=== PATIENT | female | born 1935 | race Caucasian/White ===

== ENCOUNTER → 2016-11-22 17:13 | Outpatient (CLI) | payer MEDICARE, BC | END | disposition home or self-care (01) | LOC: D.MAMMO 09:00 | DX: Z12.31 Encounter for screening mammogram for malignant neoplasm of breast (principal) ==

== ENCOUNTER 2016-11-28 09:39 | Outpatient (CLI) | payer MEDICARE, BC ==
[~2016-11-28] VITALS: Ht 157.5 cm; Wt 59.5 kg
[2016-11-28] MEDS ORDERED: LEVOTHYROXINE100 MCG PO (10:00)
[2016-11-28] MEDS ORDERED: NEURONTIN 300300 MG PO (10:00)
[2016-11-28] MEDS ORDERED: FEXOFENADINE H180 MG PO (10:01)
[2016-11-28] MEDS ORDERED: ZANTAC150 MG PO (10:01)
[2016-11-28] MEDS ORDERED: EVISTA60 MG PO (10:01)
[2016-11-28] MEDS ORDERED: RED YEAST RICE600 MG PO (10:02)
[2016-11-28] MEDS ORDERED: FLUTICASONE PRO16 GM NASAL (10:02)
[2016-11-28] MEDS ORDERED: VITAMIN B-121000 MCG PO (10:03)
[2016-11-28] MEDS ORDERED: CALCIUM 600 +1 EAC3 PO (10:03)
[2016-11-28] MEDS ORDERED: MILK OF MAGNESI30 ML (10:04)
[2016-11-28] MEDS ORDERED: MULTIPLE VITAMI1 TA1 PO (10:04)
[2016-11-28] MEDS ORDERED: GELATIN (10:05)
--- NOTE | 2016-11-28 11:03 | NUR ---
1035 PATIENT HERE TO RECIEVE PROLIA INJECTION, HAS NOT HAD BEFORE. GIVEN IN LEFT UPPER ARM SUBQ TISSUE WITHOUT PROBLEMS TO THE SITE NOTED. 1100 PATIENT WITHOUT REACTION NOTED, WILL DISCHARGE PT HOME. STABLE
[2016-11-28 11:05] VITALS: BP 117/71; Ht 157.5 cm; Wt 59.5 kg
== END 2016-11-28 11:00 ==
LOC: D.OPS 09:39
DX: M81.0 Age-related osteoporosis without current pathological fracture (principal)

== ENCOUNTER → 2017-06-05 12:55 | Outpatient (CLI) | payer MEDICARE, BC ==
[~2017-06-05 12:55] MED LIST: CALCIUM 600 +1 EAC3 PO; EVISTA60 MG PO; FEXOFENADINE H180 MG PO; FLUTICASONE PRO16 GM NASAL; GELATIN; LEVOTHYROXINE100 MCG PO; MILK OF MAGNESI30 ML; MULTIPLE VITAMI1 TA1 PO; NEURONTIN 300300 MG PO; RED YEAST RICE600 MG PO; VITAMIN B-121000 MCG PO; ZANTAC150 MG PO
[2017-06-05 14:17] VITALS: BP 121/85; Ht 157.5 cm
== END | disposition home or self-care (01) ==
LOC: D.OPS 06-04 10:00
DX: M81.0 Age-related osteoporosis without current pathological fracture (principal)

== ENCOUNTER 2017-12-04 12:15 | Outpatient (CLI) | payer MEDICARE, BC ==
[~2017-12-04] VITALS: Ht 157.5 cm; Wt 70.5 kg
[2017-12-04 13:08] VITALS: BP 123/80; Ht 157.5 cm; Wt 70.5 kg
== END 2017-12-04 13:00 | disposition home or self-care (01) ==
LOC: D.OPS 12:15
DX: M81.0 Age-related osteoporosis without current pathological fracture (principal)

== ENCOUNTER → 2018-06-18 12:21 | Outpatient (CLI) | payer MEDICARE, BC ==
[~2018-06-18] VITALS: Ht 157.5 cm; Wt 70.5 kg
[2018-06-18 13:08] VITALS: BP 124/68; Ht 157.5 cm; Wt 70.5 kg
== END | disposition home or self-care (01) ==
LOC: D.OPS 06-09 13:00
DX: M81.0 Age-related osteoporosis without current pathological fracture (principal); Z01.812 Encounter for preprocedural laboratory examination

== ENCOUNTER → 2018-12-08 12:01 | Outpatient (CLI) | payer MEDICARE, BC ==
[~2018-12-08] VITALS: Ht 157.5 cm; Wt 72.7 kg
[2018-12-08 12:35] VITALS: BP 129/67; Ht 157.5 cm; Wt 72.7 kg
--- NOTE | 2018-12-08 12:42 | NUR ---
PT LEFT UNIT AMBULATING AT 1242
== END | disposition home or self-care (01) ==
LOC: D.OPS 12:01
PROVIDERS: ATTEND Family Medicine
DX: M18.0 Bilateral primary osteoarthritis of first carpometacarpal joints (principal)

== ENCOUNTER 2020-02-18 13:45 | Outpatient (CLI) | payer MEDICARE, BC ==
[2019-09-02 13:49] VITALS: BMI 29.3
== END 2020-02-18 23:59 | disposition home or self-care (01) ==
LOC: D.MAMMO 13:45
PROVIDERS: ATTEND Family Medicine
DX: Z12.31 Encounter for screening mammogram for malignant neoplasm of breast (principal)

== ENCOUNTER → 2020-03-02 11:25 | Outpatient (CLI) | payer MEDICARE, BC ==
[~2020-03-02] VITALS: Ht 157.5 cm; Wt 72.7 kg
[2020-03-02 11:40] VITALS: BP 119/68; Ht 157.5 cm; Wt 72.7 kg
== END | disposition home or self-care (01) ==
LOC: D.OPS 11:25
PROVIDERS: ATTEND Family Medicine
DX: M81.0 Age-related osteoporosis without current pathological fracture (principal)

== ENCOUNTER 2020-09-26 13:59 | Outpatient (CLI) | payer MEDICARE, BC ==
[~2020-09-26] VITALS: Ht 157.5 cm; Wt 75.0 kg
[2020-09-26 14:20] VITALS: Ht 157.5 cm; Wt 75.0 kg
== END 2020-09-26 14:33 | disposition home or self-care (01) ==
LOC: D.OPS 13:59
PROVIDERS: ATTEND Family Medicine
DX: M81.0 Age-related osteoporosis without current pathological fracture (principal)